=== PATIENT | male | born 1975 | race Caucasian/White ===

== ENCOUNTER 2017-01-22 21:37 | Inpatient (IN) ==
[2017-01-22] MEDS ORDERED: LORazepam 2 MG/1 ML VIAL IV STA (22:06)
[2017-01-22] MEDS ORDERED: ONDANSETRON 4 MG/2 ML VIAL IV STA (22:06)
[2017-01-22] MEDS ORDERED: LORazepam 2 MG/1 ML VIAL ONE (22:14)
[2017-01-22] MEDS ORDERED: ONDANSETRON 4 MG/2 ML VIAL ONE (22:14)
[2017-01-22 22:46] LABS: Basophils % 0.3 % (0.0-0.8); Eosinophils # 0.2 10*3/uL (0.0-0.87); Eosinophils % 1.7 % (0.00-10.9); Hematocrit 45.7 VOL% (42.0-52.0); Hemoglobin 16.3 GM/DL (14.0-18.0); Immature Granulocytes % 0.2 %; Immature Granulocytes Absolute 0.02 #; Lymphocytes # 3.3 10*3/uL (1.4-4.0); Lymphocytes % 36.6 % (21.2-54.2); Mean Corpuscular HGB Conc 35.7 GM/DL (32-36); Mean Corpuscular Hemoglobin 29 PG (27-34); Mean Corpuscular Volume 80.2 FL (87-102); Mean Platelet Volume 9.8 FL (9.6-12.0); Monocytes # 0.7 10*3/uL (0.11-0.8); Monocytes % 7.2 % (1.7-12.7); Neutrophils # 4.9 10*3/uL (1.4-7.4); Platelet Count 235 T/CUMM (130-400); Red Cell Distribution Width 12.7 % (9.3-17.3)
[2017-01-22 23:13] LABS: Alanine Aminotransferase 33 U/L (16-61); Albumin 3.6 G/DL (3.4-5.0); Alkaline Phosphatase 61 U/L (45-117); Aspartate Amino Transferase 17 U/L (0-37); Blood Urea Nitrogen 9 MG/DL (7-18); Calcium 9.1 MG/DL (8.5-10.1); Glucose 318 MG/DL (74-106); Osmolality,Calculated 283.8 MOS/KG (273-304); Potassium 4.2 MMOL/L (3.5-5.1); Sodium 137 MMOL/L (136-145); Total Protein 7.4 G/DL (6.4-8.3)
[2017-01-22 23:15] LABS: PT Patient Result 10.4 SECS; Partial Thromboplastin Time 26.2 SECS (0-40)
[2017-01-22] MEDS ORDERED: INSULIN REGULAR 100 UNIT/ML SUBCUT STA (23:24)
[2017-01-22] MEDS ORDERED: INSULIN REGULAR 100 UNIT/ML ONE (23:49)
[2017-01-23] MEDS ORDERED: DEXTROSE 50% 25 GM/50 ML VIAL IV PRN (01:35)
[2017-01-23] MEDS ORDERED: GLUCAGON 1 MG VIAL IM PRN (01:35)
[2017-01-23 01:39] LABS: Apearance,Urine CLEAR (Clear); Bilirubin,Urine Negative (Negative); Blood, Urine Negative (Negative); Glucose,Urine (UA) >=500 mg/dL (Negative); Ketones,Urine Negative (Negative); Mucus,Urine Occasional /LPF (Occasional); Nitrite,Urine Negative (Negative); Protein,Urine Negative; Urine Color Yellow (Yellow); Urine Specific Gravity 1.036 (1.001-1.035); Urine Urobilinogen < 2.0 EU/DL (0.2-1.0); WBC,Urine <1 /HPF (0-6)
[2017-01-23] MEDS ORDERED: hydrOXYzine HCL 25 MG/1 ML VIAL IM PRN (01:39)
[2017-01-23 01:53] LABS: Barbiturates Screen,Urine Negative (Negative); Benzodiazepines Screen,Urine Negative (Negative); Cannabinoid Screen,Urine Negative (Negative); Opiate Screen,Urine Negative (Negative); Phencyclidine Screen,Urine Negative (Negative)
[2017-01-23] MEDS ORDERED: INFLUENZA VIRUS VACCINE 0.5 ML SYRINGE IM ONE (02:46)
[2017-01-23] MEDS: MORPHINE 2 MG/1 ML SYRINGE IV PRN ×3 (03:39→21:19)
[2017-01-23 06:13] LABS: Risk Ratio 4.03; VLDL CHOLESTEROL 19.8 MG/DL
[2017-01-23] MEDS ORDERED: NON-FORMULARY MEDICATION (Dulaglutide [Trulicity] 1.5 MG) SQ SCH (09:00)
[2017-01-23] MEDS: ASPIRIN 325 MG TABLET PO SCH (09:23)
[2017-01-23] MEDS: DOCUSATE SODIUM 100 MG CAPSULE PO SCH ×2 (09:23→21:11)
[2017-01-23] MEDS: INSULIN REGULAR 100 UNIT/ML SUBCUT SCH ×4 (09:27→21:11)
[2017-01-23] MEDS: ENOXAPARIN 40 MG/0.4 ML SYRINGE SUBCUT SCH (12:48)
[2017-01-23] MEDS ORDERED: ZIPRASIDONE 20 MG/1 ML VIAL IM ONE (15:07)
[2017-01-23] MEDS: AMITRIPTYLINE 25 MG TABLET PO SCH (21:10)
[2017-01-24] MEDS: ENOXAPARIN 40 MG/0.4 ML SYRINGE SUBCUT SCH (09:05)
[2017-01-24] MEDS: MORPHINE 2 MG/1 ML SYRINGE IV PRN (09:05)
[2017-01-24] MEDS: ASPIRIN 325 MG TABLET PO SCH (09:08)
[2017-01-24] MEDS: DOCUSATE SODIUM 100 MG CAPSULE PO SCH ×2 (09:08→22:16)
[2017-01-24] MEDS: INSULIN REGULAR 100 UNIT/ML SUBCUT SCH ×4 (09:15→22:17)
[2017-01-24] MEDS ORDERED: diphenhydrAMINE 50 MG/1 ML VIAL IV SCH (11:00)
[2017-01-24] MEDS: ONDANSETRON 4 MG/2 ML VIAL IV SCH ×3 (12:46→23:11)
[2017-01-24] MEDS: glipiZIDE 5 MG TABLET PO SCH (12:47)
[2017-01-24] MEDS: MEPERIDINE 50 MG/1 ML VIAL IV SCH ×2 (16:21→22:59)
[2017-01-24] MEDS: SODIUM CHLORIDE 0.9% IV SCH ×2 (16:22→23:06)
[2017-01-24] MEDS: VALPROIC ACID IV SCH ×2 (16:22→23:06)
[2017-01-24] MEDS: PROMETHAZINE 25 MG/1 ML VIAL IM SCH ×2 (16:59→22:59)
[2017-01-24] MEDS: AMITRIPTYLINE 25 MG TABLET PO SCH (22:15)
[2017-01-25] MEDS: ONDANSETRON 4 MG/2 ML VIAL IV SCH ×3 (06:35→18:15)
[2017-01-25] MEDS: MEPERIDINE 50 MG/1 ML VIAL IV SCH ×2 (06:36→14:26)
[2017-01-25] MEDS: VALPROIC ACID IV SCH ×2 (06:42→14:28)
[2017-01-25] MEDS: SODIUM CHLORIDE 0.9% IV SCH ×2 (06:42→14:28)
[2017-01-25] MEDS: PROMETHAZINE 25 MG/1 ML VIAL IM SCH ×2 (06:43→14:25)
[2017-01-25] MEDS: INSULIN REGULAR 100 UNIT/ML SUBCUT SCH ×4 (07:38→21:23)
[2017-01-25] MEDS: ENOXAPARIN 40 MG/0.4 ML SYRINGE SUBCUT SCH (09:30)
[2017-01-25] MEDS: DOCUSATE SODIUM 100 MG CAPSULE PO SCH ×2 (09:30→21:24)
[2017-01-25] MEDS: glipiZIDE 5 MG TABLET PO SCH (09:30)
[2017-01-25] MEDS: ASPIRIN 325 MG TABLET PO SCH (09:30)
[2017-01-25] MEDS ORDERED: diphenhydrAMINE 50 MG/1 ML VIAL IV ONE (17:44)
[2017-01-25] MEDS: MORPHINE 2 MG/1 ML SYRINGE IV PRN (18:12)
[2017-01-25] MEDS: diphenhydrAMINE 50 MG/1 ML VIAL IV PRN (18:16)
[2017-01-25] MEDS: AMITRIPTYLINE 25 MG TABLET PO SCH (21:24)
[2017-01-26] MEDS: MORPHINE 2 MG/1 ML SYRINGE IV PRN ×2 (00:27→06:54)
[2017-01-26] MEDS: ONDANSETRON 4 MG/2 ML VIAL IV SCH ×2 (00:34→06:58)
[2017-01-26] MEDS: diphenhydrAMINE 50 MG/1 ML VIAL IV PRN ×2 (00:34→06:58)
[2017-01-26] MEDS: INSULIN REGULAR 100 UNIT/ML SUBCUT SCH ×2 (07:24→11:30)
[2017-01-26] MEDS: glipiZIDE 5 MG TABLET PO SCH (08:25)
[2017-01-26] MEDS: DOCUSATE SODIUM 100 MG CAPSULE PO SCH (08:25)
[2017-01-26] MEDS: ASPIRIN 325 MG TABLET PO SCH (08:25)
[2017-01-26] MEDS: ENOXAPARIN 40 MG/0.4 ML SYRINGE SUBCUT SCH (08:26)
[2017-01-26] MEDS ORDERED: METHOCARBAMOL 750 MG TABLET PO SCH (09:00)
[2017-01-26 10:31] VITALS: BP 122/81
== END 2017-01-26 12:40 | disposition home or self-care (01) | DRG 103 ==
LOC: N.ED 21:37 → SUATTDRO 01-23 01:34 → N.EDINP 01-23 01:34 → N.4E 01-23 02:22
PROVIDERS: ADMIT Internal Medicine; ATTEND Hospitalist

== ENCOUNTER 2017-06-30 11:38 | Observation (INO) ==
[2017-06-30] MEDS ORDERED: MORPHINE 4 MG/1 ML VIAL IV STA (14:29)
[2017-06-30] MEDS ORDERED: NITROGLYCERIN 2% OINT 1 INCH/GM PACK TOP STA (14:29)
[2017-06-30] MEDS ORDERED: ASPIRIN 325 MG TABLET PO STA (14:29)
[2017-06-30] MEDS ORDERED: ALUM/MAG/SIMETH/LIDO VISC 1:1 30 ML BOTTLE PO STA (14:29)
[2017-06-30] MEDS ORDERED: ONDANSETRON 4 MG/2 ML VIAL IV STA (14:29)
[2017-06-30] MEDS ORDERED: METOPROLOL TARTRATE 25 MG TABLET PO STA (14:29)
[2017-06-30] MEDS ORDERED: FUROSEMIDE 40 MG/4 ML VIAL IV STA (14:29)
[2017-06-30 14:50] LABS: Basophils % 0.4 % (0.0-0.8); Eosinophils # 0.2 10*3/uL (0.0-0.87); Eosinophils % 1.9 % (0.00-10.9); Hematocrit 47.5 VOL% (42.0-52.0); Hemoglobin 16.2 GM/DL (14.0-18.0); Immature Granulocytes % 0.4 %; Immature Granulocytes Absolute 0.03 #; Lymphocytes # 2.8 10*3/uL (1.4-4.0); Lymphocytes % 36.1 % (21.2-54.2); Mean Corpuscular HGB Conc 34.1 GM/DL (32-36); Mean Corpuscular Hemoglobin 28 PG (27-34); Mean Corpuscular Volume 81.8 FL (87-102); Mean Platelet Volume 9.7 FL (9.6-12.0); Monocytes # 0.6 10*3/uL (0.11-0.8); Monocytes % 7.8 % (1.7-12.7); Neutrophils # 4.2 10*3/uL (1.4-7.4); Neutrophils % 53.4 % (38.7-73.9); Platelet Count 193 T/CUMM (130-400); Red Blood Count 5.81 MC/CUMM (3.8-5.5); White Blood Count 7.8 T/CUMM (4-12)
[2017-06-30 15:00] LABS: PT Patient Result 10.4 SECS
[2017-06-30 15:28] LABS: Albumin 3.5 G/DL (3.4-5.0); Bilirubin,Total 0.9 MG/DL (0.2-1.0); Calcium 8.7 MG/DL (8.5-10.1); Osmolality,Calculated 278.7 MOS/KG (273-304); Potassium 3.7 MMOL/L (3.5-5.1); Total Protein 6.8 G/DL (6.4-8.3)
[2017-06-30] MEDS ORDERED: DEXTROSE 50% 25 GM/50 ML VIAL IV PRN (18:48)
[2017-06-30] MEDS ORDERED: GLUCAGON 1 MG VIAL IM PRN (18:48)
[2017-06-30] MEDS ORDERED: ACETAMINOPHEN 325 MG TABLET PO PRN (19:16)
[2017-06-30] MEDS ORDERED: SUMAtriptan 6 MG/0.5 ML VIAL SUBCUT ONE (20:04)
[2017-06-30] MEDS ORDERED: AMITRIPTYLINE 25 MG TABLET PO SCH (21:00)
[2017-06-30] MEDS: METHOCARBAMOL 500 MG TABLET PO SCH (21:31)
[2017-06-30] MEDS: INSULIN LISPRO 100 UNIT/ML SUBCUT SCH (21:31)
[2017-06-30] MEDS: SODIUM CHLORIDE 0.9% 1,000 ML IV SCH (22:20)
[2017-07-01] MEDS: MORPHINE 4 MG/1 ML VIAL IV PRN ×2 (01:56→13:40)
[2017-07-01 05:04] LABS: Basophils % 0.4 % (0.0-0.8); Eosinophils # 0.2 10*3/uL (0.0-0.87); Eosinophils % 1.9 % (0.00-10.9); Hematocrit 45.5 VOL% (42.0-52.0); Hemoglobin 15.2 GM/DL (14.0-18.0); Immature Granulocytes % 0.2 %; Immature Granulocytes Absolute 0.02 #; Lymphocytes # 3.3 10*3/uL (1.4-4.0); Lymphocytes % 39.5 % (21.2-54.2); Mean Corpuscular HGB Conc 33.4 GM/DL (32-36); Mean Corpuscular Hemoglobin 28 PG (27-34); Mean Corpuscular Volume 83.6 FL (87-102); Mean Platelet Volume 9.5 FL (9.6-12.0); Monocytes # 0.6 10*3/uL (0.11-0.8); Monocytes % 7.2 % (1.7-12.7); Neutrophils # 4.3 10*3/uL (1.4-7.4); Neutrophils % 50.8 % (38.7-73.9); Platelet Count 198 T/CUMM (130-400); Red Blood Count 5.44 MC/CUMM (3.8-5.5); Red Cell Distribution Width 13.2 % (9.3-17.3); White Blood Count 8.5 T/CUMM (4-12)
[2017-07-01 05:50] LABS: Calcium 8.4 MG/DL (8.5-10.1); Osmolality,Calculated 276.1 MOS/KG (273-304); Potassium 4.1 MMOL/L (3.5-5.1)
[2017-07-01 05:58] LABS: Risk Ratio 5.41; VLDL CHOLESTEROL 48.6 MG/DL
[2017-07-01] MEDS: PANTOPRAZOLE 40 MG TABLET PO SCH (09:08)
[2017-07-01] MEDS: LISINOPRIL 10 MG TABLET PO SCH (09:09)
[2017-07-01] MEDS: INSULIN LISPRO 100 UNIT/ML SUBCUT SCH ×4 (09:09→22:26)
[2017-07-01] MEDS: ASPIRIN EC 81 MG TABLET PO SCH (09:09)
[2017-07-01] MEDS: ONDANSETRON 4 MG/2 ML VIAL IV PRN ×2 (09:15→14:48)
[2017-07-01] MEDS ORDERED: LORazepam 1 MG TABLET PO ONE (10:16)
[2017-07-01] MEDS ORDERED: LORazepam 1 MG TABLET ONE (10:32)
[2017-07-01] MEDS: SODIUM CHLORIDE 0.9% 1,000 ML IV SCH ×2 (14:48→22:29)
[2017-07-01] MEDS ORDERED: ZIPRASIDONE 20 MG/1 ML VIAL IM ONE (16:55)
[2017-07-01] MEDS: METHOCARBAMOL 500 MG TABLET PO SCH (22:27)
[2017-07-01] MEDS: AMITRIPTYLINE 25 MG TABLET PO SCH (22:27)
[2017-07-02] MEDS: SODIUM CHLORIDE 0.9% 1,000 ML IV SCH ×2 (03:59→15:24)
[2017-07-02 05:05] LABS: Basophils % 0.3 % (0.0-0.8); Eosinophils # 0.1 10*3/uL (0.0-0.87); Hematocrit 44.4 VOL% (42.0-52.0); Hemoglobin 14.8 GM/DL (14.0-18.0); Immature Granulocytes % 0.3 %; Immature Granulocytes Absolute 0.02 #; Lymphocytes # 2.1 10*3/uL (1.4-4.0); Lymphocytes % 30.9 % (21.2-54.2); Mean Corpuscular HGB Conc 33.3 GM/DL (32-36); Mean Corpuscular Hemoglobin 28 PG (27-34); Mean Corpuscular Volume 84.3 FL (87-102); Mean Platelet Volume 9.7 FL (9.6-12.0); Monocytes # 0.5 10*3/uL (0.11-0.8); Monocytes % 7.7 % (1.7-12.7); Neutrophils # 4.1 10*3/uL (1.4-7.4); Neutrophils % 58.8 % (38.7-73.9); Platelet Count 173 T/CUMM (130-400); Red Blood Count 5.27 MC/CUMM (3.8-5.5); Red Cell Distribution Width 13.2 % (9.3-17.3); White Blood Count 6.9 T/CUMM (4-12)
[2017-07-02 05:32] LABS: Calcium 7.9 MG/DL (8.5-10.1); Osmolality,Calculated 279.7 MOS/KG (273-304); Potassium 4.1 MMOL/L (3.5-5.1)
[2017-07-02] MEDS: INSULIN LISPRO 100 UNIT/ML SUBCUT SCH ×4 (09:47→21:49)
[2017-07-02] MEDS: glipiZIDE 5 MG TABLET PO SCH (10:23)
[2017-07-02] MEDS: MORPHINE 4 MG/1 ML VIAL IV PRN ×3 (10:23→21:04)
[2017-07-02] MEDS: ASPIRIN EC 81 MG TABLET PO SCH (10:23)
[2017-07-02] MEDS: PANTOPRAZOLE 40 MG TABLET PO SCH (10:23)
[2017-07-02] MEDS: LISINOPRIL 10 MG TABLET PO SCH (10:23)
[2017-07-02] MEDS ORDERED: ZIPRASIDONE 20 MG/1 ML VIAL IM PRN (12:21)
[2017-07-02] MEDS: ONDANSETRON 4 MG/2 ML VIAL IV PRN (17:00)
[2017-07-02] MEDS: METHOCARBAMOL 500 MG TABLET PO SCH (20:55)
[2017-07-02] MEDS: AMITRIPTYLINE 25 MG TABLET PO SCH (20:56)
[2017-07-03] MEDS: MORPHINE 4 MG/1 ML VIAL IV PRN ×4 (04:38→20:41)
[2017-07-03 05:16] LABS: Basophils % 0.4 % (0.0-0.8); Eosinophils # 0.1 10*3/uL (0.0-0.87); Eosinophils % 1.8 % (0.00-10.9); Hematocrit 42.3 VOL% (42.0-52.0); Hemoglobin 14.1 GM/DL (14.0-18.0); Immature Granulocytes % 0.3 %; Immature Granulocytes Absolute 0.02 #; Lymphocytes # 2.3 10*3/uL (1.4-4.0); Lymphocytes % 31.5 % (21.2-54.2); Mean Corpuscular HGB Conc 33.3 GM/DL (32-36); Mean Corpuscular Hemoglobin 28 PG (27-34); Mean Corpuscular Volume 84.4 FL (87-102); Mean Platelet Volume 9.5 FL (9.6-12.0); Monocytes # 0.5 10*3/uL (0.11-0.8); Monocytes % 7.5 % (1.7-12.7); Neutrophils # 4.2 10*3/uL (1.4-7.4); Neutrophils % 58.5 % (38.7-73.9); Platelet Count 183 T/CUMM (130-400); Red Blood Count 5.01 MC/CUMM (3.8-5.5); White Blood Count 7.2 T/CUMM (4-12)
[2017-07-03] MEDS: SODIUM CHLORIDE 0.9% 1,000 ML IV SCH ×2 (05:42→15:22)
[2017-07-03 05:47] LABS: Calcium 7.9 MG/DL (8.5-10.1); Osmolality,Calculated 279.7 MOS/KG (273-304); Potassium 4.2 MMOL/L (3.5-5.1)
[2017-07-03] MEDS ORDERED: DIAZEPAM 5 MG TABLET PO ONE (07:19)
[2017-07-03] MEDS ORDERED: MAGNESIUM SULF RIDER 2 GM in PREMIX 1 EACH IV PRN (07:19)
[2017-07-03] MEDS ORDERED: POTASSIUM CHLORIDE RIDER 10 MEQ in PREMIX 1 EACH IV PRN (07:19)
[2017-07-03] MEDS ORDERED: diphenhydrAMINE CAP 25 MG CAPSULE PO ONE (07:19)
[2017-07-03] MEDS ORDERED: diphenhydrAMINE CAP 50 MG CAPSULE ONE (07:23)
[2017-07-03] MEDS: ASPIRIN EC 81 MG TABLET PO SCH ×2 (07:28→08:49)
[2017-07-03] MEDS: LISINOPRIL 10 MG TABLET PO SCH ×2 (07:28→08:49)
[2017-07-03] MEDS: PANTOPRAZOLE 40 MG TABLET PO SCH ×2 (07:28→08:49)
[2017-07-03] MEDS ORDERED: MIDAZOLAM 2 MG/2 ML VIAL ONE ×2 (07:44→08:09)
[2017-07-03] MEDS ORDERED: NITROGLYCERIN DRIP 50 MG/250 ML BOTTLE IV ONE (07:44)
[2017-07-03] MEDS ORDERED: VERAPAMIL 5 MG/2 ML VIAL ONE (07:45)
[2017-07-03] MEDS ORDERED: HYDROmorphone 2 MG/1 ML VIAL ONE ×2 (07:46→08:31)
[2017-07-03] MEDS ORDERED: ENOXAPARIN 60 MG/0.6 ML SYRINGE ONE (08:08)
[2017-07-03] MEDS ORDERED: TIROFIBAN 5,000 MCG/100 ML PREMIX IV ONE (08:39)
[2017-07-03] MEDS ORDERED: ENOXAPARIN 30 MG/0.3 ML SYRINGE ONE (08:39)
[2017-07-03] MEDS: glipiZIDE 5 MG TABLET PO SCH (08:46)
[2017-07-03] MEDS: INSULIN LISPRO 100 UNIT/ML SUBCUT SCH ×4 (08:46→20:40)
[2017-07-03] MEDS ORDERED: TICAGRELOR 90 MG TABLET ONE (09:09)
[2017-07-03] MEDS ORDERED: ZALEPLON 5 MG CAPSULE PO PRN (09:10)
[2017-07-03] MEDS ORDERED: NITROGLYCERIN SL 0.4 MG TABLET SL PRN (09:10)
[2017-07-03] MEDS: ONDANSETRON 4 MG/2 ML VIAL IV PRN (10:16)
[2017-07-03] MEDS: TICAGRELOR 90 MG TABLET PO SCH (20:40)
[2017-07-03] MEDS: AMITRIPTYLINE 25 MG TABLET PO SCH (20:40)
[2017-07-03] MEDS: METHOCARBAMOL 500 MG TABLET PO SCH (21:20)
[2017-07-04] MEDS: SODIUM CHLORIDE 0.9% 1,000 ML IV SCH (04:22)
[2017-07-04] MEDS: MORPHINE 4 MG/1 ML VIAL IV PRN ×2 (04:23→08:58)
[2017-07-04 05:42] LABS: Basophils % 0.3 % (0.0-0.8); Eosinophils # 0.2 10*3/uL (0.0-0.87); Eosinophils % 2.7 % (0.00-10.9); Hematocrit 42.1 VOL% (42.0-52.0); Hemoglobin 14.6 GM/DL (14.0-18.0); Immature Granulocytes % 0.4 %; Immature Granulocytes Absolute 0.03 #; Lymphocytes # 1.8 10*3/uL (1.4-4.0); Lymphocytes % 25.4 % (21.2-54.2); Mean Corpuscular HGB Conc 34.7 GM/DL (32-36); Mean Corpuscular Hemoglobin 28 PG (27-34); Mean Corpuscular Volume 81.9 FL (87-102); Mean Platelet Volume 9.6 FL (9.6-12.0); Monocytes # 0.6 10*3/uL (0.11-0.8); Monocytes % 8.3 % (1.7-12.7); Neutrophils # 4.5 10*3/uL (1.4-7.4); Neutrophils % 62.9 % (38.7-73.9); Platelet Count 182 T/CUMM (130-400); Red Blood Count 5.14 MC/CUMM (3.8-5.5); Red Cell Distribution Width 13.1 % (9.3-17.3); White Blood Count 7.1 T/CUMM (4-12)
[2017-07-04 06:14] LABS: Calcium 8.2 MG/DL (8.5-10.1); Osmolality,Calculated 282.3 MOS/KG (273-304); Potassium 3.7 MMOL/L (3.5-5.1)
[2017-07-04 07:52] VITALS: BP 118/69
[2017-07-04] MEDS: INSULIN LISPRO 100 UNIT/ML SUBCUT SCH (08:35)
[2017-07-04] MEDS: ASPIRIN EC 81 MG TABLET PO SCH (08:35)
[2017-07-04] MEDS: LISINOPRIL 10 MG TABLET PO SCH (08:35)
[2017-07-04] MEDS: glipiZIDE 5 MG TABLET PO SCH (08:35)
[2017-07-04] MEDS: TICAGRELOR 90 MG TABLET PO SCH (08:36)
[2017-07-04] MEDS: PANTOPRAZOLE 40 MG TABLET PO SCH (08:36)
== END 2017-07-04 11:56 | disposition home or self-care (01) ==
LOC: N.ED 11:38 → N.EDINP 11:38 → SUATTDRO 17:12 → N.TELEN 18:37
PROVIDERS: ADMIT Internal Medicine; ATTEND Internal Medicine

== ENCOUNTER 2017-07-09 22:06 | Inpatient (IN) ==
[2017-07-11 12:12] VITALS: BP 122/73
== END 2017-07-11 16:30 | disposition home or self-care (01) | DRG 206 ==
LOC: N.ED 22:06 → N.EDINP 07-10 00:10 → N.TELEN 07-10 05:16
PROVIDERS: ADMIT Internal Medicine Cardiovascular Disease; ATTEND Internal Medicine Cardiovascular Disease

== ENCOUNTER 2018-04-26 13:53 | Inpatient (IN) ==
[2018-04-26 15:14] LABS: Basophils % 0.2 % (0.0-0.8); Eosinophils # 0.1 10*3/uL (0.0-0.87); Eosinophils % 0.8 % (0.00-10.9); Hematocrit 39.3 VOL% (42.0-52.0); Hemoglobin 13.1 GM/DL (14.0-18.0); Immature Granulocytes % 0.5 %; Immature Granulocytes Absolute 0.06 #; Lymphocytes # 1.4 10*3/uL (1.4-4.0); Lymphocytes % 11.4 % (21.2-54.2); Mean Corpuscular HGB Conc 33.3 GM/DL (32-36); Mean Corpuscular Hemoglobin 27 PG (27-34); Monocytes # 0.8 10*3/uL (0.11-0.8); Monocytes % 6.3 % (1.7-12.7); Neutrophils # 9.7 10*3/uL (1.4-7.4); Neutrophils % 80.8 % (38.7-73.9); Platelet Count 274 T/CUMM (130-400); Red Blood Count 4.79 MC/CUMM (3.8-5.5); Red Cell Distribution Width 13.5 % (9.3-17.3)
[2018-04-26 15:29] LABS: Calcium 8.7 MG/DL (8.5-10.1); Osmolality,Calculated 279.8 MOS/KG (273-304); Potassium 3.7 MMOL/L (3.5-5.1)
[2018-04-26] MEDS ORDERED: CEFTAROLINE 600 MG in SODIUM CHLORIDE 0.9% 100 ML IV STA (15:37)
[2018-04-26] MEDS ORDERED: ONDANSETRON 4 MG/2 ML VIAL IV STA (16:00)
[2018-04-26] MEDS ORDERED: HYDROmorphone 2 MG/1 ML VIAL IV STA (16:00)
[2018-04-26] MEDS ORDERED: LACTATED RINGERS 1,000 ML IV ONE (16:06)
[2018-04-26] MEDS ORDERED: GLUCAGON 1 MG VIAL IM PRN (16:53)
[2018-04-26] MEDS ORDERED: DEXTROSE 50% 25 GM/50 ML SYRINGE IV PRN (16:53)
[2018-04-26] MEDS ORDERED: ACETAMINOPHEN 325 MG TABLET PO PRN (16:53)
[2018-04-26] MEDS: SODIUM CHLORIDE 0.9% 1,000 ML IV SCH ×2 (17:38→19:30)
[2018-04-26 17:40] LABS: Risk Ratio 3.1; Thyroid Stimulating Hormone 0.497 uIU/ml (0.358-3.74); VLDL CHOLESTEROL 27.6 MG/DL
[2018-04-26] MEDS ORDERED: RIZATRIPTAN ODT 5 MG TABLET PO PRN (17:47)
[2018-04-26] MEDS ORDERED: MECLIZINE 25 MG TABLET PO PRN (17:47)
[2018-04-26] MEDS ORDERED: INSULIN REGULAR 100 UNIT/ML IV STA (17:53)
[2018-04-26] MEDS: ONDANSETRON 4 MG/2 ML VIAL IV PRN ×2 (19:25→23:22)
[2018-04-26] MEDS: MORPHINE 4 MG/1 ML VIAL IV PRN ×2 (19:25→23:23)
[2018-04-26] MEDS: GABAPENTIN 300 MG CAPSULE PO SCH (20:58)
[2018-04-26] MEDS: INSULIN LISPRO 100 UNIT/ML SUBCUT SCH (20:59)
[2018-04-26] MEDS: ENOXAPARIN 40 MG/0.4 ML SYRINGE SUBCUT SCH (20:59)
[2018-04-26 23:17] LABS: Apearance,Urine CLEAR (Clear); Bacteria,Urine Occasional /HPF (Few); Bilirubin,Urine Negative (Negative); Blood, Urine Negative (Negative); Glucose,Urine (UA) >=500 mg/dL (Negative); Hyaline Casts,Urine 7 /LPF (0-3); Ketones,Urine Negative (Negative); Mucus,Urine Occasional /LPF (Occasional); Nitrite,Urine Negative (Negative); Protein,Urine Negative; RBC,Urine <1 /HPF (0-4); Urine Color Yellow (Yellow); Urine Specific Gravity 1.006 (1.001-1.035); Urine Urobilinogen < 2.0 EU/DL (0.2-1.0); WBC,Urine <1 /HPF (0-6)
[2018-04-27] MEDS: SODIUM CHLORIDE 0.9% 1,000 ML IV SCH ×3 (04:08→22:49)
[2018-04-27] MEDS: MORPHINE 4 MG/1 ML VIAL IV PRN ×5 (04:08→22:46)
[2018-04-27] MEDS: ONDANSETRON 4 MG/2 ML VIAL IV PRN ×4 (04:09→18:17)
[2018-04-27 05:19] LABS: Basophils % 0.4 % (0.0-0.8); Eosinophils # 0.2 10*3/uL (0.0-0.87); Eosinophils % 3.3 % (0.00-10.9); Hematocrit 35.3 VOL% (42.0-52.0); Hemoglobin 11.7 GM/DL (14.0-18.0); Immature Granulocytes % 0.3 %; Immature Granulocytes Absolute 0.02 #; Lymphocytes # 2.2 10*3/uL (1.4-4.0); Lymphocytes % 29.9 % (21.2-54.2); Mean Corpuscular HGB Conc 33.1 GM/DL (32-36); Mean Corpuscular Hemoglobin 27 PG (27-34); Mean Corpuscular Volume 81.1 FL (87-102); Mean Platelet Volume 9.5 FL (9.6-12.0); Monocytes # 0.7 10*3/uL (0.11-0.8); Monocytes % 9.7 % (1.7-12.7); Neutrophils % 56.4 % (38.7-73.9); Platelet Count 216 T/CUMM (130-400); Red Blood Count 4.35 MC/CUMM (3.8-5.5); Red Cell Distribution Width 13.5 % (9.3-17.3); White Blood Count 7.2 T/CUMM (4-12)
[2018-04-27 05:39] LABS: Albumin 2.7 G/DL (3.4-5.0); Bilirubin,Total 1.3 MG/DL (0.2-1.0); Calcium 8.1 MG/DL (8.5-10.1); Osmolality,Calculated 280.4 MOS/KG (273-304); Potassium 3.6 MMOL/L (3.5-5.1); Total Protein 6.3 G/DL (6.4-8.3)
[2018-04-27] MEDS: CEFTAROLINE 600 MG in SODIUM CHLORIDE 0.9% 100 ML IV SCH ×2 (05:45→18:19)
[2018-04-27] MEDS: INSULIN LISPRO 100 UNIT/ML SUBCUT SCH ×4 (08:33→20:43)
[2018-04-27] MEDS: GABAPENTIN 300 MG CAPSULE PO SCH ×2 (13:01→20:42)
[2018-04-27] MEDS: SERTRALINE 50 MG TABLET PO SCH (13:01)
[2018-04-27] MEDS: ASPIRIN EC 81 MG TABLET PO SCH (13:01)
[2018-04-27] MEDS: PANTOPRAZOLE 40 MG TABLET PO SCH (13:02)
[2018-04-27] MEDS: ATORVASTATIN 40 MG TABLET PO SCH (13:02)
[2018-04-27] MEDS: METOPROLOL SUCCINATE XL 50 MG TABLET PO SCH (13:02)
[2018-04-27] MEDS: INSULIN GLARGINE 100 UNIT/ML SUBCUT SCH (13:03)
[2018-04-27] MEDS: TAMSULOSIN 0.4 MG CAPSULE PO SCH (13:10)
[2018-04-27] MEDS ORDERED: IBUPROFEN 800 MG TABLET PO PRN (13:39)
[2018-04-27] MEDS ORDERED: traMADol 50 MG TABLET PO PRN (13:39)
[2018-04-27] MEDS ORDERED: ACETAMINOPHEN 325 MG TABLET PO PRN (13:46)
[2018-04-27] MEDS ORDERED: PROMETHAZINE 25 MG TABLET PO PRN (14:55)
[2018-04-27] MEDS: ENOXAPARIN 40 MG/0.4 ML SYRINGE SUBCUT SCH (20:41)
[2018-04-28] MEDS: MORPHINE 4 MG/1 ML VIAL IV PRN ×2 (04:07→08:08)
[2018-04-28 05:24] LABS: Basophils % 0.4 % (0.0-0.8); Eosinophils # 0.2 10*3/uL (0.0-0.87); Eosinophils % 2.6 % (0.00-10.9); Hematocrit 35.1 VOL% (42.0-52.0); Hemoglobin 11.6 GM/DL (14.0-18.0); Immature Granulocytes % 0.2 %; Immature Granulocytes Absolute 0.01 #; Lymphocytes # 2.5 10*3/uL (1.4-4.0); Lymphocytes % 43.9 % (21.2-54.2); Mean Corpuscular Hemoglobin 27 PG (27-34); Mean Platelet Volume 9.7 FL (9.6-12.0); Monocytes # 0.5 10*3/uL (0.11-0.8); Monocytes % 9.1 % (1.7-12.7); Neutrophils # 2.5 10*3/uL (1.4-7.4); Neutrophils % 43.8 % (38.7-73.9); Platelet Count 201 T/CUMM (130-400); Red Blood Count 4.28 MC/CUMM (3.8-5.5); Red Cell Distribution Width 13.4 % (9.3-17.3); White Blood Count 5.7 T/CUMM (4-12)
[2018-04-28 06:00] LABS: Bilirubin,Total 0.5 MG/DL (0.2-1.0); Calcium 7.7 MG/DL (8.5-10.1); Osmolality,Calculated 283.3 MOS/KG (273-304); Potassium 3.4 MMOL/L (3.5-5.1)
[2018-04-28] MEDS: CEFTAROLINE 600 MG in SODIUM CHLORIDE 0.9% 100 ML IV SCH (06:45)
[2018-04-28] MEDS: ASPIRIN EC 81 MG TABLET PO SCH (08:05)
[2018-04-28] MEDS: PANTOPRAZOLE 40 MG TABLET PO SCH (08:06)
[2018-04-28] MEDS: SERTRALINE 50 MG TABLET PO SCH (08:06)
[2018-04-28] MEDS: GABAPENTIN 300 MG CAPSULE PO SCH (08:06)
[2018-04-28] MEDS: ATORVASTATIN 40 MG TABLET PO SCH (08:06)
[2018-04-28] MEDS: METOPROLOL SUCCINATE XL 50 MG TABLET PO SCH (08:07)
[2018-04-28] MEDS: INSULIN LISPRO 100 UNIT/ML SUBCUT SCH ×2 (08:13→12:17)
[2018-04-28] MEDS ORDERED: CLOPIDOGREL 75 MG TABLET PO SCH (09:00)
[2018-04-28] MEDS ORDERED: LISINOPRIL 5 MG TABLET PO SCH (09:00)
[2018-04-28] MEDS ORDERED: SPIRONOLACTONE 25 MG TABLET PO SCH (09:00)
[2018-04-28] MEDS: INSULIN GLARGINE 100 UNIT/ML SUBCUT SCH (09:15)
[2018-04-28] MEDS: TAMSULOSIN 0.4 MG CAPSULE PO SCH (09:17)
[2018-04-28] MEDS: SODIUM CHLORIDE 0.9% 1,000 ML IV SCH ×2 (09:18→12:04)
[2018-04-28 16:24] VITALS: BP 122/72
== END 2018-04-28 16:40 | disposition home or self-care (01) | DRG 74 ==
LOC: N.ED 13:53 → N.EDINP 16:53 → N.3E 18:30
PROVIDERS: ADMIT Internal Medicine; ATTEND Internal Medicine

== ENCOUNTER 2019-04-25 20:23 | Observation (INO) ==
[2019-04-25] MEDS ORDERED: MORPHINE 4 MG/1 ML VIAL IM STA (20:57)
[2019-04-25] MEDS ORDERED: ONDANSETRON 4 MG/2 ML VIAL IV STA (20:57)
[2019-04-25] MEDS ORDERED: ASPIRIN CHEW 81 MG TABLET PO STA (20:57)
[2019-04-25] MEDS ORDERED: FAMOTIDINE 20 MG/2 ML VIAL IV STA (20:58)
[2019-04-25 21:05] LABS: Basophils % 0.3 % (0.0-0.8); Eosinophils # 0.2 10*3/uL (0.0-0.87); Eosinophils % 2.4 % (0.00-10.9); Hemoglobin 14.7 GM/DL (14.0-18.0); Immature Granulocytes % 0.2 %; Immature Granulocytes Absolute 0.02 #; Lymphocytes # 3.8 10*3/uL (1.4-4.0); Lymphocytes % 41.3 % (21.2-54.2); Mean Corpuscular HGB Conc 32.7 GM/DL (32-36); Mean Corpuscular Volume 84.6 FL (87-102); Mean Platelet Volume 9.6 FL (9.6-12.0); Monocytes % 7.5 % (1.7-12.7); Neutrophils % 48.3 % (38.7-73.9); Platelet Count 235 T/CUMM (130-400); Red Blood Count 5.32 MC/CUMM (3.8-5.5); Red Cell Distribution Width 13.5 % (9.3-17.3); White Blood Count 9.1 T/CUMM (4-12)
[2019-04-25 21:27] LABS: Albumin 3.7 G/DL (3.4-5.0); Bilirubin,Total 0.7 MG/DL (0.2-1.0); Calcium 8.8 MG/DL (8.5-10.1); Osmolality,Calculated 275.8 MOS/KG (273-304); Total Protein 7.1 G/DL (6.4-8.3)
[2019-04-25 21:30] LABS: INR 0.9; Partial Thromboplastin Time 24.9 SECS (20.8-36.0)
[2019-04-25] MEDS ORDERED: MORPHINE 4 MG/1 ML VIAL IV STA (21:46)
[2019-04-25] MEDS ORDERED: NITROGLYCERIN SL 0.4 MG TABLET SL STA (22:38)
[2019-04-25] MEDS ORDERED: DEXTROSE 50% 25 GM/50 ML SYRINGE IV PRN (23:39)
[2019-04-25] MEDS ORDERED: ACETAMINOPHEN 325 MG TABLET PO PRN (23:39)
[2019-04-25] MEDS ORDERED: GLUCAGON 1 MG VIAL IM PRN (23:39)
[2019-04-25] MEDS ORDERED: PROMETHAZINE 25 MG TABLET PO PRN (23:44)
[2019-04-25] MEDS ORDERED: tiZANidine 4 MG TABLET PO PRN (23:44)
[2019-04-25] MEDS ORDERED: traMADol 50 MG TABLET PO PRN (23:44)
[2019-04-25] MEDS ORDERED: MECLIZINE 25 MG TABLET PO PRN (23:44)
[2019-04-26] MEDS ORDERED: ACETAMINOPHEN 325 MG TABLET PO PRN (01:51)
[2019-04-26] MEDS ORDERED: ENOXAPARIN 40 MG/0.4 ML SYRINGE SUBCUT SCH (08:00)
[2019-04-26] MEDS: INSULIN LISPRO 100 UNIT/ML SUBCUT SCH ×4 (08:03→20:42)
[2019-04-26] MEDS: INSULIN GLARGINE 100 UNIT/ML SUBCUT SCH ×2 (09:12→20:41)
[2019-04-26] MEDS: glipiZIDE 5 MG TABLET PO SCH ×2 (11:08→16:30)
[2019-04-26] MEDS: lisinopriL 5 MG TABLET PO SCH (11:14)
[2019-04-26] MEDS: GABAPENTIN 300 MG CAPSULE PO SCH ×2 (11:14→20:41)
[2019-04-26] MEDS: ASPIRIN EC 81 MG TABLET PO SCH (11:14)
[2019-04-26] MEDS: CLOPIDOGREL 75 MG TABLET PO SCH (11:14)
[2019-04-26] MEDS: PANTOPRAZOLE 40 MG TABLET PO SCH (11:15)
[2019-04-26] MEDS: TOPIRAMATE 100 MG TABLET PO SCH ×2 (11:17→20:41)
[2019-04-26] MEDS: METOPROLOL SUCCINATE XL 25 MG TABLET PO SCH (11:17)
[2019-04-26] MEDS ORDERED: REGADENOSON 0.4 MG/5 ML SYRINGE IV ONE (12:29)
[2019-04-26] MEDS ORDERED: DIAZEPAM 5 MG TABLET PO ONE (15:23)
[2019-04-26] MEDS ORDERED: diphenhydrAMINE CAP 25 MG CAPSULE PO ONE (15:23)
[2019-04-26] MEDS ORDERED: ROSUVASTATIN 20 MG TABLET PO SCH (21:00)
[2019-04-26] MEDS ORDERED: TEMAZEPAM 15 MG CAPSULE PO ONE (22:00)
[2019-04-26 22:16] LABS: Barbiturates Screen,Urine Negative (Negative); Benzodiazepines Screen,Urine Negative (Negative); Cannabinoid Screen,Urine Negative (Negative); Opiate Screen,Urine Positive (Negative); Phencyclidine Screen,Urine Negative (Negative)
[2019-04-27 04:14] LABS: Basophils % 0.3 % (0.0-0.8); Eosinophils # 0.2 10*3/uL (0.0-0.87); Eosinophils % 2.6 % (0.00-10.9); Hematocrit 42.8 VOL% (42.0-52.0); Hemoglobin 13.7 GM/DL (14.0-18.0); Immature Granulocytes % 0.1 %; Immature Granulocytes Absolute 0.01 #; Lymphocytes # 2.7 10*3/uL (1.4-4.0); Lymphocytes % 36.5 % (21.2-54.2); Mean Corpuscular Volume 84.6 FL (87-102); Mean Platelet Volume 9.7 FL (9.6-12.0); Monocytes % 9.2 % (1.7-12.7); Neutrophils % 51.3 % (38.7-73.9); Platelet Count 197 T/CUMM (130-400); Red Blood Count 5.06 MC/CUMM (3.8-5.5); Red Cell Distribution Width 13.2 % (9.3-17.3); White Blood Count 7.3 T/CUMM (4-12)
[2019-04-27 04:29] LABS: Calcium 8.5 MG/DL (8.5-10.1); Osmolality,Calculated 277.5 MOS/KG (273-304)
[2019-04-27] MEDS ORDERED: diphenhydrAMINE CAP 25 MG CAPSULE PO ONE (06:00)
[2019-04-27] MEDS ORDERED: DIAZEPAM 5 MG TABLET PO ONE (06:00)
[2019-04-27] MEDS ORDERED: SODIUM CHLORIDE 0.45% 1,000 ML IV SCH (06:00)
[2019-04-27] MEDS ORDERED: HEPARIN/NACL 0.9% 2 UNITS/ML 1,500 ML IV ONE ×2 (08:50→09:10)
[2019-04-27] MEDS: GABAPENTIN 300 MG CAPSULE PO SCH (09:00)
[2019-04-27] MEDS: lisinopriL 5 MG TABLET PO SCH (09:00)
[2019-04-27] MEDS: METOPROLOL SUCCINATE XL 25 MG TABLET PO SCH (09:01)
[2019-04-27] MEDS: TOPIRAMATE 100 MG TABLET PO SCH (09:01)
[2019-04-27] MEDS: PANTOPRAZOLE 40 MG TABLET PO SCH (09:01)
[2019-04-27] MEDS: ASPIRIN EC 81 MG TABLET PO SCH (09:05)
[2019-04-27] MEDS: INSULIN GLARGINE 100 UNIT/ML SUBCUT SCH (09:05)
[2019-04-27] MEDS: CLOPIDOGREL 75 MG TABLET PO SCH (09:06)
[2019-04-27] MEDS: glipiZIDE 5 MG TABLET PO SCH ×2 (09:07→16:58)
[2019-04-27] MEDS: INSULIN LISPRO 100 UNIT/ML SUBCUT SCH ×3 (09:07→16:59)
[2019-04-27] MEDS ORDERED: LIDOCAINE 1% 20 ML VIAL ONE (09:10)
[2019-04-27] MEDS ORDERED: fentaNYL 100 MCG/2 ML VIAL ONE (09:13)
[2019-04-27] MEDS ORDERED: MIDAZOLAM 2 MG/2 ML VIAL ONE ×2 (09:13→09:42)
[2019-04-27] MEDS ORDERED: ADENOSINE 90 MG/30 ML VIAL IV ONE (09:54)
[2019-04-27] MEDS ORDERED: diphenhydrAMINE 50 MG/1 ML VIAL ONE (09:55)
[2019-04-27] MEDS ORDERED: HEPARIN 5,000 UNIT/1 ML VIAL ONE (09:56)
[2019-04-27] MEDS ORDERED: NITROGLYCERIN DRIP 50 MG/250 ML BOTTLE IV ONE (10:04)
[2019-04-27] MEDS ORDERED: SODIUM CHLORIDE 0.9% 1,000 ML IV SCH (10:30)
[2019-04-27] MEDS ORDERED: MORPHINE 4 MG/1 ML VIAL IV PRN (11:24)
[2019-04-27 15:38] VITALS: BP 125/87
== END 2019-04-27 18:05 | disposition home or self-care (01) ==
LOC: N.EDINP 20:23 → N.ED 20:23 → N.4E 04-26 01:06
PROVIDERS: ADMIT Internal Medicine; ATTEND Internal Medicine
PROC: CLCCHCL (ICD-10-PCS; 2019-04-27 09:15)